=== PATIENT | male | born 1985 | race Two or more races ===

== ENCOUNTER 2018-01-16 23:25 | Emergency (ER) | payer SELFPAY, OTHER ==
[~2018-01-16] VITALS: Ht 177.8 cm; Wt 77.1 kg
[2018-01-16 23:50] VITALS: BP 130/80
[2018-01-17 00:10] VITALS: BP 131/81
--- NOTE | 2018-01-17 00:10 | Emergency Room Report ---
History of Present Illness General Chief Complaint: General Complaint Source: Patient Present Illness HPI Patient presents with okay to book by [facility] department Patient had a remote history of left foot injury Otherwise does not have any other medical complaints Patient walks with a limp usually secondary to the injury There is unclear regarding the specifics Denies any fall or trauma Allergies: Coded Allergies: No Known Allergies (Unverified , 01/16/18) Patient History Past Medical History: see triage record Pertinent Family History: none Reviewed Nursing Documentation: PMH: Agreed; PSxH: Agreed Review of Systems All Other Systems: negative except mentioned in HPI Physical Exam Vital Signs Date Time Temp Pulse Resp B/P (MAP) Pulse Ox O2 Delivery O2 Flow Rate FiO2 01/16/18 23:40 97.6 78 16 130/80 98 Room Air 97.5 Sp02 EP Interpretation: reviewed, normal General Appearance: well appearing, no apparent distress Head: normocephalic, atraumatic Eyes: bilateral eye PERRL, bilateral eye EOMI ENT: hearing grossly normal, normal pharynx Neck: full range of motion Respiratory: lungs clear Cardiovascular #1: regular rate, rhythm Musculoskeletal: other - Patient has discomfort to any slight touch of the medial aspect of the left foot, there is a chronic appearing healed wound, neurovascularly intact Neurologic: alert, oriented x3 Skin: other - As above Lymphatic: no adenopathy Medical Decision Making Diagnostic Impression: Primary Impression: foot pain Additional Impression: ok to book ER Course Patient presents with a fairly chronic medical condition There is no acute pathology Further imaging was not obtained Patient is stable for further booking at care home with tanner Vaughn follow-up in the morning Last Vital Signs Date Time Temp Pulse Resp B/P (MAP) Pulse Ox O2 Delivery O2 Flow Rate FiO2 01/16/18 23:40 97.6 78 16 130/80 98 Room Air 97.5 Status: unchanged Disposition: D/C TO LAW ENFORCEMENT IN [facility] Condition: Stable Referrals: [facility],REFERRING (PCP) Departure Forms: Fdc Clearance Patient Instructions: Medical Screening Exam Additional Instructions: The injury of your right foot is chronic. There is no acute emergency treatment required. Please follow-up tanner Vaughn in the morning Pepper Mendez DO Jan 17, 2018 00:10
== END 2018-01-17 00:10 ==
LOC: EMR 23:42
DX: M79.672 Pain in left foot (principal)
CPT/HCPCS: 99282